=== PATIENT | female | born 1970 | race Hispanic/Latino ===

== ENCOUNTER 2024-02-10 09:38 | Emergency (ER) | payer BC ==
[~2024-02-10] VITALS: Ht 154.9 cm; Wt 68.0 kg
[2024-02-10 09:41] VITALS: BP 121/78; PULSE 75; RESP 16; TEMP 97.8
--- NOTE | 2024-02-10 10:11 | ERN ---
General Chief Complaint: Headache Stated Complaint: MIGRAINE, NAUSEA/VOMITING Time Seen by MD: 09:42 Source: patient History of Present Illness Initial Comments 53 YEAR OLD FEMALE COMING IN TO BE EVALUATED FOR HEADACHE. PATIENT STATES THAT IN THE MORNING SHE WOKE UP SHE PRESENTED WITH THESE HEADACHES THAT STATES MAKE HER NAUSEOUS. SHE DOES HAVE A HISTORY OF HEADACHES BUT STATES HE HAS NOT GOTTEN THEM IN A WHILE. NEUROLOGICALLY PATIENT STATES SHE FEELS FINE BUT HAS THESE HEADACHES THAT SHE QUANTIFIES THE PAIN AT 7/10. Allergies: Coded Allergies: No Known Allergies (Unverified Allergy, Unknown, 02/10/24) Past Medical History Past Medical History: Migraines Past Surgical History: Cholecystectomy ROS Dictation CONSTITUTIONAL: NO CHILLS, NO FEVER, NO WEAKNESS, NO DIAPHORESIS, NO MALAISE. HEAD/FACE: NO SIGNS OF TRAUMA. EENT: NO EYE PAIN, NO BLURRED VISION, NO TEARING, NO DOUBLE VISION, NO EAR PAIN , NO EAR DISCHARGE, NO NOSE PAIN, NO NASAL CONGESTION, NO THROAT PAIN, NO THROAT SWELLING, NO MOUTH PAIN. RESPIRATORY: NO COUGH, NO ORTHOPNEA, NO SOB, NO STRIDOR, NO WHEEZING. CARDIOVASCULAR: NO CHEST PAIN, NO EDEMA, NO PALPITATIONS, NO SYNCOPE. GASTROINTESTINAL/ABDOMINAL: NO ABDOMINAL PAIN, NO CONSTIPATION, NO DIARRHEA, NO NAUSEA, NO VOMITING. GENITOURINARY: NO ABNORMAL DISCHARGE, NO DYSURIA, NO FREQUENT URINATION, NO HEMATURIA. NO COMPLAINTS OF PAIN IN THE GENITALS. MUSCULOSKELETAL: NO BACK PAIN, NO GOUT, NO JOINT PAIN, NO JOINT SWELLING, NO MUSCLE PAIN, NO MUSCLE STIFFNESS, NO NECK PAIN. INTEGUMENTARY: NO CHANGE IN COLOR, NO CHANGE IN HAIR/NAILS, NO DRYNESS, NO LESION, NO LUMPS, NO RASH. NEUROLOGICAL/PSYCH: NO ANXIETY, NOT DEPRESSED, NO EMOTIONAL PROBLEM, NO HEADACHE, NO NUMBNESS, NO PRE-EXISTING DEFICIT, NO HISTORY OF SEIZURES, NO TREMORS, NO WEAKNESS. HEMATOLOGIC/LYMPHATIC: NOT ANEMIC, NO HISTORY OF BLOOD CLOTS, NO APPARENT BLEEDING, NO BRUISING, GLANDS NOT SWOLLEN. ALL SYSTEMS NEGATIVE, EXCEPT NOTED. Results Laboratory and Microbiology Lab and Micro Result Laboratory Tests Test 02/10/24 09:50 02/10/24 10:03 02/10/24 10:12 Urine Color LIGHT-YELLOW (YELLOW) Urine Appearance CLEAR (CLEAR) Urine pH 7.0 (5.0-8.0) Urine Specific [place] 1.022 (1.001-1.031) Urine Protein 10 mg/dL (NEGATIVE) H Urine Glucose (UA) NEGATIVE mg/dL (NEGATIVE) Urine Ketones NEGATIVE mg/dL (NEGATIVE) Urine Occult Blood NEGATIVE (NEGATIVE) Urine Nitrate NEGATIVE (NEGATIVE) Urine Bilirubin NEGATIVE mg/dL (NEGATIVE) Urine Urobilinogen 0.2 mg/dL (0.2-1.0) Urine Leukocyte Esterase NEGATIVE Nery/uL White Blood Count 10.4 K/uL (4.8-10.8) Red Blood Count 4.99 MIL/uL (4.00-5.50) Hemoglobin 14.9 g/dL (12.0-16.0) Hematocrit 44.9 % (36-48) Mean Corpuscular Volume 90.0 fL (79-99) Mean Corpuscular Hemoglobin 29.9 pg (27.0-33.0) Mean Corpuscular Hemoglobin Concent 33.2 g/dL (32.0-36.0) Red Cell Distribution Width 13.2 % (11.0-15.5) Platelet Count 132 K/uL (130-400) Mean Platelet Volume 12.5 fL (7.5-10.5) H Immature Granulocyte % (Auto) 0.4 % (0-1) Neutrophils (%) (Auto) 79.5 % (40.0-77.0) H Lymphocytes (%) (Auto) 15.3 % (21.0-51.0) L Monocytes (%) (Auto) 4.1 % (3.0-13.0) Eosinophils (%) (Auto) 0.1 % (0.0-8.0) Basophils (%) (Auto) 0.6 % (0.0-5.0) Neutrophils # (Auto) 8.3 K/uL (1.8-7.7) H Lymphocytes # (Auto) 1.6 K/uL (1.0-4.8) Monocytes # (Auto) 0.4 K/uL (0.1-1.0) Eosinophils # (Auto) 0.01 K/uL (0.00-0.70) Basophils # (Auto) 0.06 K/uL (0.00-0.20) Absolute Immature Granulocyte (auto 0.04 K/uL (0-1) Nucleated Red Blood Cells 0.0 % (0.0-0.19) Sodium Level 143 mmol/L (136-145) Potassium Level 3.3 mmol/L (3.5-5.1) L Chloride Level 106 mmol/L (101-111) Carbon Dioxide Level 31 mmol/L (21-32) Blood Urea Nitrogen 10 mg/dL (7-18) Creatinine 0.9 mg/dL (0.5-1.0) Glomerular Filtration Rate Calc 77 mL/min (>90) Random Glucose 108 mg/dL (70-105) H Total Calcium 8.5 mg/dL (8.5-10.1) Influenza Type A Antigen Negative For Type A Influenza Type B Antigen Negative For Type B SARS-CoV-2, RNA, NAAT NEGATIVE SARS CoV-2 Labs Reviewed?: Yes MDM MDM: DIFFERENTIAL DIAGNOSIS: TENSION HEADACHE, MIGRAINE, PATIENT IS A 53-YEAR-OLD FEMALE COMING IN TO BE EVALUATED FOR HEADACHE. ON PHYSICAL EXAM TENSION HEADACHE MOST PROBABLY SINCE BILATERAL TRAPEZIUS MUSCLE TENDERNESS ON PALPATION. LABORATORY WORKUP NEGATIVE FOR ACUTE FINDINGS. PATIENT WAS NEUROLOGICALLY INTACT WE WILL INITIATE CONSERVATIVE METHODS OF HEADACHE MANAGEMENT SINCE SHE DOES HAVE A HISTORY WELL. ALSO ADVISED HER APPROPRIATE FOLLOW UP WITH PCP IN 1-2 DAYS. ED Course Orders Procedure Category Date Status Time Cbc With Differential LAB 02/10/24 Complete 09:45 Basic Metabolic Panel LAB 02/10/24 Complete 09:45 Urinalysis LAB 02/10/24 In Process W/Microscopic 09:45 Covid Rna Naat LAB 02/10/24 Complete 09:45 Influenza Type A & B, LAB 02/10/24 Complete Rapid 09:45 0.9%Nacl 1000ml (Ns PHA 02/10/24 Complete 1000ml) 10:00 Prochlorperazine PHA 02/10/24 Complete 10mg/2ml Inj 10:00 Diphenhydramine Hcl PHA 02/10/24 Complete (Benadryl Inj) 10:00 Acetaminophen 500mg PHA 02/10/24 Complete Tab (Tylenol 500mg T 10:00 Current Medications Medications (Trade) Dose Ordered Sig/Jaja Route PRN Reason Start Time Stop Time Status Last Admin Dose Admin Acetaminophen (TYLenol 500MG TAB) 1,000 mg ONCE ONCE PO 02/10/24 10:00 02/10/24 10:01 DC 02/10/24 10:21 Diphenhydramine HCl (BENAdryl INJ) 25 mg ONCE ONCE IV 02/10/24 10:00 02/10/24 10:01 DC 02/10/24 10:20 Prochlorperazine Edisylate (Compazine 10mg/ 2ml Inj) 10 mg ONCE ONCE IV 02/10/24 10:00 02/10/24 10:01 DC 02/10/24 10:20 Sodium Chloride 1,000 ml @ 0 mls/hr ONCE ONCE IV 02/10/24 10:00 02/10/24 10:01 DC 02/10/24 10:27 Vital Signs Date Time Temp Pulse Resp B/P (MAP) Pulse Ox O2 Delivery O2 Flow Rate FiO2 02/10/24 09:41 97.9 75 16 121/78 100 Room Air 0 DX & DISP Disposition: Discharge Departure Impression: Primary Impression: Tension headache Condition: Stable Scripts Diclofenac Sodium (Voltaren Arthritis Pain) 1 % Gel..gram. 20 GM TP BID for 7 Days, #1 TUBE Prov: CRUZ STEEN MD 02/10/24 Additional Instructions: FOLLOW-UP WITH PRIMARY CARE PROVIDER IN 1 TO 2 DAYS. TAKE MEDICATIONS DIRECTED HERE IN THE EMERGENCY ROOM. OKAY TO CONTINUE HOME MEDICATIONS UNLESS OTHERWISE DISCUSSED DURING YOUR VISIT IN THE EMERGENCY ROOM TODAY. RETURN TO YOUR NEAREST EMERGENCY ROOM IF SYMPTOMS WORSEN OR IF THERE IS NO IMPROVEMENT. CALL 911 IF YOU NEED IMMEDIATE ASSISTANCE. TAKE TYLENOL [id number] NEEDED AND IF NO CONTRAINDICATIONS ARE PRESENT. INCREASE ORAL HYDRATION. A WOUND CULTURE OR URINE CULTURE WAS ORDERED HERE IN THE EMERGENCY ROOM DEPARTMENT PLEASE FOLLOW-UP WITH PRIMARY CARE PROVIDER AND ADVISE THEM TO GET REPEAT PORTS FROM OUR FACILITY. IF YOU HAD ANY JOHNNY WRAP/SPLINTS THAT WERE APPLIED HERE, PLEASE DO NOT REMOVE THEM UNTIL YOU SEE YOUR PRIMARY CARE OR SPECIALTY. REFERRALS: Referrals: FARAZ LATHAM MD Time of Disposition: 11:33 CRUZ STEEN MD Feb 10, 2024 10:11
[2024-02-10] MEDS: PROCHLORPERAZINE 10MG/2ML INJ IV ONE (10:20)
[2024-02-10] MEDS: DiphenhydrAMINE HCL 50 MG/ML VIAL IV ONE (10:20)
[2024-02-10] MEDS: acetaMINOPHEN 500 MG TABLET PO ONE (10:21)
[2024-02-10 10:24] LABS: BASOPHILS # (AUTO) 0.06 K/uL (0.00-0.20); BASOPHILS % (AUTO) 0.6 % (0.0-5.0); EOSINOPHILS # (AUTO) 0.01 K/uL (0.00-0.70); EOSINOPHILS % (AUTO) 0.1 % (0.0-8.0); HEMATOCRIT 44.9 % (36-48); IMMATURE GRANULOCYTE ABSOLUTE 0.04 K/uL (0-1); LYMPHOCYTES # (AUTO) 1.6 K/uL (1.0-4.8); LYMPHOCYTES % (AUTO) 15.3 % (21.0-51.0); MEAN CORPUSCULAR HEMOGLOBIN 29.9 pg (27.0-33.0); MEAN CORPUSCULAR HGB CONC 33.2 g/dL (32.0-36.0); MONOCYTES # (AUTO) 0.4 K/uL (0.1-1.0); MONOCYTES % (AUTO) 4.1 % (3.0-13.0); NEUTROPHILS # (AUTO) 8.3 K/uL (1.8-7.7); NEUTROPHILS % (AUTO) 79.5 % (40.0-77.0); PLATELET COUNT (AUTO) 132 K/uL (130-400); RED BLOOD CELL COUNT(AUTO) 4.99 MIL/uL (4.00-5.50); RED CELL DISTRIBUTION WIDTH 13.2 % (11.0-15.5); WHITE BLOOD COUNT (AUTO) 10.4 K/uL (4.8-10.8)
[2024-02-10] MEDS: 0.9%NACL 1000ML 1,000 ML IV ONE (10:27)
[2024-02-10 10:37] LABS: CREATININE 0.9 mg/dL (0.5-1.0); POTASSIUM 3.3 mmol/L (3.5-5.1)
[2024-02-10 10:39] LABS: APPEARANCE,URINE CLEAR (CLEAR); BILIRUBIN,URINE NEGATIVE (NEGATIVE); COLOR,URINE LIGHT-YELLOW (YELLOW); GLUCOSE, URINE (UA) NEGATIVE (NEGATIVE); KETONES,URINE NEGATIVE (NEGATIVE); LEUKOCYTE ESTERASE ,URINE NEGATIVE Leu/uL (NEGATIVE); NITRATE,URINE NEGATIVE (NEGATIVE); OCCULT BLOOD,URINE NEGATIVE (NEGATIVE); PROTEIN,URINE 10 mg/dL (NEGATIVE); UROBILINOGEN,URINE 0.2 mg/dL (0.2-1.0)
[2024-02-10 11:01] LABS: SARS-CoV-2, RNA, NAAT NEGATIVE SARS CoV-2 (NEGATIVE)
[2024-02-10 11:10] LABS: INFLUENZA TYPE A Negative For Type A (NEGATIVE); INFLUENZA TYPE B Negative For Type B (NEGATIVE)
[2024-02-10 11:34] LABS: BACTERIA,URINE RARE /HPF (None Seen); MUCUS,URINE RARE LPF (None Seen); SQUAMOUS EPITHELIAL CELL,UR FEW /HPF (0-2); UNCLASSIFIED CRYSTAL 1 /HPF (None Seen)
[2024-02-10] MEDS ORDERED: DICL20GE TP (11:34)
== END 2024-02-10 12:00 | disposition home or self-care (01) ==
LOC: EDH 09:38
DX: G44.209 Tension-type headache, unspecified, not intractable (principal); G43.909 Migraine, unspecified, not intractable, without status migrainosus; Z90.49 Acquired absence of other specified parts of digestive tract; Z20.822 Contact with and (suspected) exposure to COVID-19
CPT/HCPCS: 99284; 96374; 87635; 96361; 96375; 80048; 85025; 87804 ×2; 81001; 36415; J1200; J7030; J0780